=== PATIENT | female | born 1950 | race Caucasian/White ===

== ENCOUNTER → 2020-10-10 11:40 | Outpatient (CLI) | payer MEDICARE, SELFPAY ==
[2020-10-10 12:42] LABS: BUN Creatinine Ratio 32.1 (6-22); Blood Urea Nitrogen 17 mg/dL (7-17); Calcium 9.3 mg/dL (8.4-10.2); Carbon Dioxide 28 mmol/L (22-32); Chloride 106 mmol/L (98-107); Estimated Glomerular Filt Rate > 60.0 mL/min (>60); Glucose 106 mg/dL (80-110); HEMOLYSIS < 15 (0-50); Potassium 3.9 mmol/L (3.4-5.1); Sodium 138 mmol/L (137-145)
== END ==
PROVIDERS: PCP Family Medicine; Referring Provider Orthopaedic Surgery Adult Reconstructive Orthopaedic Surgery; Visit Provider Orthopaedic Surgery Adult Reconstructive Orthopaedic Surgery
DX: Z01.818 Encounter for other preprocedural examination (principal)
CPT/HCPCS: 36415; 80048; 93005

== ENCOUNTER → 2021-03-26 13:54 | Outpatient (CLI) | payer MEDICARE, SELFPAY ==
[2021-03-26 17:45] LABS: COVID19 -Nasal RAPID Negative (Negative)
== END ==
PROVIDERS: PCP Family Medicine; Referring Provider Nurse Practitioner Family; Visit Provider Nurse Practitioner Family
DX: Z01.812 Encounter for preprocedural laboratory examination (principal); Z20.822 Contact with and (suspected) exposure to COVID-19
CPT/HCPCS: 87635; C9803

== ENCOUNTER 2021-03-28 10:18 | Observation (INO) | payer MEDICARE, SELFPAY ==
[2021-03-23 13:28] VITALS: BMI 31.1
[2021-03-27] VITALS (14 sets, daily range): BP systolic 134–157; BP diastolic 62–96; PULSE 63–89; RESP 13–18; TEMP 36.2–37.3; O2SAT 95–98; BMI 31.1
--- NOTE | 2021-03-27 14:35 | PM.PREOP ---
Pre-operative Note COVID-19 COVID-19 status: Negative Result date/Date tested (Pos, Neg/Pending): 03/26/21 Interval Note History & Physical reviewed/Exam performed by Physician: Yes Changes to H&P: No H&P completed within 30 days and has changed as indicated here:: Plan for removalof hardware, I&D right ankle and 6 weeks IV abx
--- NOTE | 2021-03-27 15:08 | SUR.OPER ---
Supine on padded OR bed, head on pillow, arms secured on padded arm boards at <90 degrees abduction, legs uncrossed, safety belt at waist, tape over blanket over left lower leg.Right leg under control of surgeon, gel bump under right hip.
[2021-03-27] MEDS: CEFAZOLIN 1 GM VIAL 2 GM IV ×2 (15:24→17:21)
[2021-03-27] MEDS: fentaNYL 100 MCG/2 ML INJ IV ×2 (16:00→16:05)
[2021-03-27] MEDS: OXYCODONE IR 5 MG TABLET PO (16:16)
[2021-03-27] MEDS: ACETAMINOPHEN 325 MG TABLET 975 MG PO ×2 (16:20→20:35)
--- NOTE | 2021-03-27 16:20 | P.OP_ITS ---
Operative Date/Time/Diagnoses Date of procedure: 03/27/21 Time of procedure: 16:20 Pre-op diagnosis: infected right ankle hardware Post-op diagnosis: same Procedure & Clinicians Procedure: Removal of hardware right ankle and irrigation debridement. Same procedure as scheduled: Yes Indications: Patient status post open reduction internal fixation of right ankle fracture approximately 6 months ago. Last week she presented with a draining sinus tract. This was able to probe down to the plate which indicates infection of the hardware. Surgeon: Joshua Murray Click Yes if Unassisted: Yes Anesthesia Type: General Operative Notes Findings: Draining sinus tract probing down to the bone and plate. Mild purulence encountered during irrigation debridement. Closure Type: primary Specimen(s): other (2x swab; 1x bone culture) Estimated Blood Loss (mL): 50 Procedure in detail: Patient was met in the preoperative holding area where the site and side of surgery marked by . For was then removed been reviewed in clinic was also reviewed the preoperative holding area and signed in the preop holding area. Patient brought back in operating room she was induced under general anesthesia. A nonsterile tourniquet was then placed on the right thigh the right lower extremity then prepped and draped in normal sterile fashion. A surgical time- out was performed verifying the site and surgery surgery as well and the patient. An Esmarch was then used to exsanguinate the right lower extremity the tourniquet was inflated turned 50 mm Hg. The old surgical incision was marked out a 10. Blade was then used to open up the old incision the sinus tract was ellipsed out. Combination of sharp and blunt dissection was carried down the level the plate. At this point some gross purulence was encountered. Swabs were taken. I then removed the lag screw followed by the 7 screws that were holding the plate onto the bone and remove the plates and screws. No hardware was left behind. At this point bone biopsy was then performed and sent as well. A large curette was then used to roughly debride the wound bed and bone. Small curette was then used to debride each screw hole. The wound was then thoroughly irrigated with copious normal saline. Repeat round of debridement was then performed followed by repeat irrigation tourniquet was let down at 17 minutes of time hemostasis was achieved using electrocautery Ancef was given intravenously and the wound was closed using 2 V icryl in a layered fashion followed by 2-0 nylon in vertical mattress fashion on skin followed by Xeroform and sterile dressings. Post-operative Condition: stable Disposition: PACU Plan for aftercare: Weightbearing as tolerated right lower extremity in a cam boot, Ancef 2 g q.8 hours, PICC line ordered, aspirin 81 mg b.i.d. for 6 weeks for DVT prophylaxis.
[2021-03-27] MEDS: LACTATED RINGERS 1,000 ML 125 ML IV (17:21)
[2021-03-27] MEDS: ASPIRIN EC 81 MG TABLET PO (20:35)
[2021-03-28] VITALS: BP 136/76; PULSE 68; RESP 15; TEMP 36.4; O2SAT 95
[2021-03-28] MEDS: CEFAZOLIN 1 GM VIAL 2 GM IV ×3 (00:58→19:02)
[2021-03-28] MEDS: OXYCODONE IR 5 MG TABLET PO ×2 (01:21→20:07)
[2021-03-28] MEDS: LACTATED RINGERS 1,000 ML 125 ML IV (01:55)
[2021-03-28 04:00] VITALS: BP 121/62; PULSE 58; RESP 16; TEMP 36.5; O2SAT 98
[2021-03-28 05:37] LABS: Hematocrit 38.2 % (36-46); Hemoglobin 12.7 g/dL (12.0-16.0); Mean Corpuscular HGB Conc 33.3 % (30-36); Mean Corpuscular Hemoglobin 29.8 PG (26-34); Mean Corpuscular Volume 89.4 fL (80-100); Platelet Count 390 X10^3/uL (150-400); Red Blood Cell Count 4.27 X10^6/uL (4.0-5.2)
[2021-03-28 08:10] VITALS: BP 136/74; PULSE 62; RESP 17; TEMP 36.5; O2SAT 96
--- NOTE | 2021-03-28 08:38 | PM.PNPO.1 ---
Subjective Subjective Date Patient Seen: 03/28/21 Time Patient Seen: 08:44 Interval history: The patient is complaining of mild right ankle pain status post right ankle I&D for infected hardware yesterday. She denies fevers, chills, night sweats. No numbness or tingling. No nausea or vomiting. She has not had her PICC line placed yet. Exam Vital Signs (past 8 hours): - 03/28/21 04:00 Temperature 97.7 F Pulse Rate 58 L Respiratory Rate 16 Blood Pressure 121/62 Pulse Oximetry 98 Oxygen Delivery Method Room Air Oxygen Flow Rate 0 Narrative Exam Narrative: Pleasant 71-year-old female, resting comfortably in bed, no acute distress. Dressing is intact, clean and dry. Patient is able to dorsiflex and plantar flex on the right side. She is currently in a Cam boot. Bilateral calves are soft, nontender palpation. Gram stain +: Gram+ cocci. Aerobic and anaerobic final cultures are still pending. Objective Labs Result Diagrams: 03/28/21 05:25 Labs: Laboratory Results - last 24 hr 03/28/21 05:25 WBC 10.0 RBC 4.27 Hgb 12.7 Hct 38.2 MCV 89.4 MCH 29.8 MCHC 33.3 RDW 13.0 Plt Count 390 PFSH Medical History (Updated 03/28/21 @ 08:47 by Vannessa Lao PA-C) Surgical site infection Social History household members: none Smoking Status: Never smoker alcohol intake: never Assessment & Plan Post-op Postoperative Procedures: Procedures Operation Date: 03/27/21 14:30 Actual Procedure Side Surgeon p I&D ankle w. Right Joshua Murray MD s Removal of Hardware for deep infection involving implant Right Joshua Murray MD Postoperative status narrative: stable status post right ankle I&D for infected hardware Postoperative plan narrative: -Weightbearing as tolerated right lower extremity in a cam boot -Ancef 2 g q.8 hours. [facility] has been contacted by our office for home medication. -PICC line ordered -cultures are still pending, but Gram stain + for Gram positive cocci -aspirin 81 mg b.i.d. for 6 weeks for DVT prophylaxis -possibly DC home today after PICC line placement. Need to check with Dr. Murray about wound care and pending cultures prior to DC Quality VTE Deep Vein Thrombosis/Pulmonary Embolism Present on Admission: No
[2021-03-28] MEDS: ASPIRIN EC 81 MG TABLET PO ×2 (09:28→20:07)
[2021-03-28] MEDS: ACETAMINOPHEN 325 MG TABLET 975 MG PO ×3 (09:28→20:07)
--- NOTE | 2021-03-28 09:49 | PC.NURSE ---
Patient is wearing her protective boot to her r.ankle. She states that her pain is a 4/10. Given Tylenol for comfort and helpful. CMS wnl and ppx2. Patient is getting her picc line placed as she will go home with iv antibiotics for 6 weeks.
--- NOTE | 2021-03-28 10:34 | DI.RAD.S_ITS ---
PROCEDURE: XR CHEST FOR PICC 1V INDICATIONS: proper picc placement TECHNIQUE: One view of the chest was acquired. COMPARISON: None. FINDINGS: Surgical changes and devices: Left-sided PICC with the catheter tip at the cavoatrial junction. Lungs and pleura: Minimal streaky opacity in the left lung. No silhouetting. No pleural effusions or pneumothorax. Mediastinum: Mediastinal contours appear normal. Heart size is normal. Bones and chest wall: No suspicious bony lesions. Overlying soft tissues appear unremarkable. IMPRESSION: Left-sided PICC with the catheter tip at the cavoatrial junction. Minimal streaky opacity in the left lung. Suspect atelectasis over pneumonia. Dictated by: Juan Carlos Bledsoe M.D. on 03/28/2021 at 10:19 Approved by: Juan Carlos Bledsoe M.D. on 03/28/2021 at 10:20
--- NOTE | 2021-03-28 11:07 | PT.IIE ---
Current Diagnoses Infection following a procedure, other surgical site, initial encounter (03/28/21) Surgery Performed Operation Date: 03/27/21 14:30 Actual Procedures p I&D ankle w.(Right) - Joshua Murray MD s Removal of Hardware for deep infection involving implant(Right) - Joshua Murray MD Medical History (Last Updated 03/28/21 @ 08:47 by Vannessa Lao PA-C) Surgical site infection Physical Therapy Inpatient Evaluation/Re-Eval M1 PT/OT-IP Prior Functional Status Start: 03/28/21 12:16 Freq: NEEDED Status: Active Protocol: Document 03/28/21 11:07 AB (Rec: 03/28/21 12:44 AB [id number]) Medical Review Prior Functional Status Medical History Reviewed Yes Communication able to make needs known Mobility and Gait pt stated that she is modified independent with mobilities and ambulation using her knee scooter. stated that she has been NWB on RLE prior to I&D. Social History Household Members none Living Arrangements House Number of Floors (Floors) One Floor Number of Stairs To Enter/Railing? from the front: 4 steps+ landing+3 steps without rails from the back: needs to walk> 50 ft but onlyhas 2 steps without rails Home Environment Tub/Shower Home Equipment Four Wheel Walker,Straight Cane,Crutches Additional Social History Comment pt lives at [place] in a cabin. stated that she has 2 cabins and one of the cabins is just a bedroom but with a regular height bed but she will not go in there when it is raining due to safety. pt has a tub shower but stated that she will just do sponge bathing. Pt does not have a toilet in the house but has to go outside in an outhouse. stated that she has been using a bucket for bladder/bowel needs but if it is not raining will go use the outhouse. stated that she only has 1 mattress on the floor for her to sleep on. M2 PT-IP Current Condition Start: 03/28/21 12:16 Freq: NEEDED Status: Active Protocol: Document 03/28/21 11:07 AB (Rec: 03/28/21 12:44 AB [id number]) Physical Therapy Current Condition Current Condition Evaluation Date 03/28/21 Treatment Diagnosis s/p R ankle I&D; difficulty in walking Onset Date 03/27/21 Precautions Brace cam boot RLE Weight Bearing Status Weight Bearing Status Weight Bear as Tolerated Allowed Weight Bearing Amount (enter % RLE WBAT with cam boot or #) (%) M3 PT-IP Subjective Start: 03/28/21 12:16 Freq: NEEDED Status: Active Protocol: Document 03/28/21 11:07 AB (Rec: 03/28/21 12:44 AB [email or web address]) Subjective Physical Therapy Visit Type Type Initial Evaluation Visit Start Time 11:07 Visit Stop Time 12:10 Total Visit Minutes 63 Number of VIOLIN TUTOR Visits 0 Physical Therapy Visit Comments Patient Comments agreeable to do PT Therapy Pain Assessment Pain When Pain Assessed During Weight Bearing Pain Present Pain Present Pain Reported Location Right Ankle Intensity 5 Scale Used Numeric (0 - 10) Pain Management Techniques Distraction,Modification of Treatment,Re-positioning, Timing of Activity with Medications M4 PT-IP Mobility and Gait Start: 03/28/21 12:16 Freq: NEEDED Status: Active Protocol: Document 03/28/21 11:07 AB (Rec: 03/28/21 12:44 AB [email or web address]) PT-Bed Mobility Assessment Supine to Sit Supine to Sit Standby Assistance PT-Transfer Assessment Sit to and From Stand Sit to and from Stand Standby Assistance Equipment Transfer Assistive Device Gait Belt,4 Wheeled Walker Orthotic/Prosthetic Devices or Brace: Yes Transfers Transfer Destination Chair Transfer Technique ambulated Transfer Ability Level of Assist Standby Assistance,Use of Upper Extremities Comments Mobility Comments pt s/p LUE picc line. nurse stated that pt is not suppose to use much of her LUE due to picc line and not lifting more than 10#. nurse cleared pt for PT. pt completed supine to sit SBA . required assist to put L side shoe. ambulated using 4WW in the room ~ 40 ft SBA. stair climbing training using SPC and completed x 4 set on a step stool SBA to CGA. pt stated that she has a low bed. just one mattress on the floor and wants to know how she can get up. stated that she used to have a regular bed but got rid of it. also stated that she had a knee scooter but got rid of that as well. simulated low bed. pt sat on foot stool pt stated that she has a pole on R side. attempted to get up using armrest as pole but pt tends to rotate trunk instead of standing upright. pt used arm rest to pull on R side and squat pivot and plop on chair max A and cues. informed pt that she told PT that she has a pole so she cannot sit on it and it will not be safe for her to get up from. showed pt another way to get up without rotating and just standing straigth up RUE pushing from the stool/bed and LUE on the 4WW. pt unable to complete without assistance and needed max A and max cues. informed pt that she just needs to use the bed in the other cabin and pt stated that she will not go in there when it is raining . Pt asked PT what can she do . Informed pt that theses are environmental barriers that PT cannot do anything at this time especially with her restriction on her LUE and cam boot on RLE. pt stated that she will ask her friend if she can stay at her place for a few days. will f/u tomorrow. Gait Assessment Gait Gait Assistance Required: Standby Assistance Distance (Feet) 40 Able to Maintain Weight Bearing Status Yes During Gait Assistive Devices Assistive Device Straight Cane,4 Wheeled Walker Gait Deviations General Gait Pattern Antalgic,Decreased Stride Length,Decreased Feet Clearance Factors Limiting Gait Function Factors Limiting Gait Function Decreased Strength,Difficulty Following Directions,Limited Range of Motion,Pain,Poor Balance,Poor Safety Awareness Stair Climbing Assessment Evaluation Level of Assist On Stairs Contact Guard Assistance,1 Person Assistance Devices Stair Climbing Assistive Devices Straight Cane Technique/Endurance Stair Climbing Direction Ascend and Descend Stair Climbing Technique Step to Step Number of Steps Climbed 1 Query Text: Stair Climbing Set # Repetitions (reps) 4 PT-Balance Assessment Sitting Balance and Reactions Static Sitting Balance Ability Normal Dynamic Sitting Balance Ability Good Standing Balance and Reactions Static Standing Balance Ability Fair Dynamic Standing Balance Ability Fair Device Used 4WW M5 PT-IP Objective Assessments Start: 03/28/21 12:16 Freq: NEEDED Status: Active Protocol: Document 03/28/21 11:07 AB (Rec: 03/28/21 12:44 AB [id number]) Orientation Orientation/Cognition Level of Alertness Alert Orientation Name,Place,Situation Safety Awareness Decreased Safety Awareness Gross Range of Motion Lower Extremity ROM Impairments R ankle on cam boot NT Strength Lower Extremity Strength Assessment Left Impaired Ankle R: NT Muscle Tone Muscle Tone WNL Yes M6 PT-IP Treatment Start: 03/28/21 12:16 Freq: NEEDED Status: Active Protocol: Document 03/28/21 11:07 AB (Rec: 03/28/21 12:44 AB [email or web address]) Physical Therapy Treatment Education Education Provided Precautions,Weight Bearing Status,Safety Other Treatments Other Treatment Performed pt stated that she knows how to manage her cam boot M7 PT-IP Assessment and Plan Start: 03/28/21 12:16 Freq: NEEDED Status: Active Protocol: Document 03/28/21 11:07 AB (Rec: 03/28/21 12:44 AB [email or web address]) PT Summary Assessment and Plan Potential Rehabilitation Potential Fair Status of Condition at Evaluation Evolving Summary Impairments Pain,ROM,Strength,Balance, Coordination,Sensation,Tone, Cognition,Bed Mobility, Transfers,Gait,Activity Tolerance Assessment Summary pt requiring SBA with ambulation using 4WW, CGA with stair climbing but has difficulty getting up from a very low surface (pt has a low bed)requiring max A and max cues. pt lives at [place] and lives on a cabin and has several environmental barriers affecting mobility considering current medical condition. will continue to assess progress. Goals Bed Mobility Goal Independent Transfer Goal Independent,Cane,Four Wheeled Walker Gait Goal Independent,Cane,Four Wheel Walker Gait Distance 150 Other Goals up/down 2 steps SPC mod I Days to Meet Goals 10 Frequency of Treatment Frequency Of Treatment Once a Day Treatment Plan Physical Therapy Treatment Plan Bed Mobility Training,Transfer Training,Gait Training, Therapeutic Exercise,Balance Retraining,Post Op Education, Discharge Planning,Hot or Cold Pack,Neuromuscular Re-ed, Coordination Retraining,Manual Therapy Precautions Other Precautions RLE WBAT with cam boot Recommendations To Nursing Amount of Assist Needed 1 Person Assist Discharge Recommendations PT Discharge Recommendations Home with Assistance Transportation Needs at Discharge Private Vehicle
[2021-03-28 13:20] VITALS: BP 134/74; PULSE 70; RESP 18; TEMP 36.7; O2SAT 96
--- NOTE | 2021-03-28 14:23 | CM.DANOTE ---
Patient is a 71 yo female who was admitted on 03/27/21 for post op infection. Pt has [facility] for insurance and her PCP is Dr. Samuel Heart. EMR was reviewed. Per Ortho , pt was taken to surgery for I&D of the post ankle surgery hardware infection and removal. Pt will need 6 weeks IV-Abx and started referral to [facility]. Per PT, pt lives at home alone on [address] in two off the grid cabins with no bathroom but outhouse and sleeps in one cabin as the other has a mattress on the ground and pt has been using a bucket for toileting since her initial ankle surgery. Will work with pt again tomorrow for stairs and CG training with friend. SW received a call from Reese at [facility] stating they received referral from Ortho and aware of Ancef 2g Q8 and pt will have some copay/out pocket expense and already spoke to pt via phone with this information and will complete bedside teaching with pt either this afternoon or tomorrow prior to d/c. [facility] just requesting labs and PICC insertion note. SW faxed labs, microbiology, PICC note, and MAR to [facility] to review. Due to pt's copay/costs [facility] requesting MACIEJ RN for weekly lab draws and dressing changes. MED called [facility] as they are the only agency services [facility] and made new referral and confirmed they can accept her insurance and faxed pt referral along with completed F2F and MD orders. SW met bedside with pt and friend Rosario and explained role and pt confirms that she is now planning to d/c to her friend's house via friend's POV and she is agreeable with [facility] and cost as well as [facility] and SW provided brochures for both. Pt confirms she is active and independent at baseline and has adult Dtr, DAWN, and grandchild in [place] that she sees regularly and they plan to have pt come stay with them after pt is settled after d/c and pt already discussed with [facility] and they can follow her there if needed. Plan: SW to follow for plan of d/c to friend's house tomorrow with [facility] for IV-Abx and Jalil WING RN. SW to fax d/c summary to both at discharge. SW to follow for CG training with PT tomorrow to confirm pt can manage stairs. SOCO Lynn Discharge Planning/Care Management CM Discharge Assessment Start: 03/28/21 14:21 Freq: Status: Active Protocol: Document 03/28/21 14:21 BF (Rec: 03/28/21 14:23 BF [id number]) Discharge Planning Assessment Assigned Cpc SOCO Resendiz DPOA/Assigned Designee Name none, informally Dtr in [place] Advance Directives? No Advance Directives on File No History Provided By Patient,Friend,Medical Record Has Patient been admitted in last 30 No days? Prior Living Arrangements House Household Members none Type of transporation used prior to Drives own vehicle admit Independent with ADL's Yes Is patient alert and oriented? Yes Caregiver for Another No DME Already Rented / Owned FWW / Walker,Cane Patient/Family Preference Home with Home Health Barriers to Discharge No Discharge Plan Home with Home Health Community Services Home Health Nurse,IV Therapy Transportation Arrangement Friend bedside and plans to transport home at d/c to her house Referrals Initiated Home Health,Other Additional Comment [facility] for 6 weeks IV-Abx If patient plan is home with home health Yes : Has signed face to face form been completed? Medicare Choice List Provided Yes SNF/HH Preference [facility] and [facility] Whiteboard Updated in Patient Room with Yes name and ext. # of Cpc Review Status In Process Please Provide Date Initial DC 03/28/21 Assessment Was Performed Next Review Type Continued Stay Review Pre-Anesthesia Assessment Start: 03/23/21 13:28 Freq: Status: Active Protocol: Document 03/23/21 13:28 CAB (Rec: 03/23/21 13:35 CAB [id number]) Pre-Anesthesia Assessment PAC Comment Surgeon H&P not identified. Last medical/medication records are from 1999, unable to complete PAC assess Patient Information Reviewed Via Chart Review Comment COVID screen @ 03/26/21 Primary Care Provider Not listed Seen Specialist in Last 12 Months Yes Specialist Seen Orthopedist Prop Drawer Required No Height 157.48 cm Weight 77.111 kg Body Mass Index (BMI) 31.1
[2021-03-28 16:29] VITALS: BP 113/64; PULSE 64; RESP 20; TEMP 36.6; O2SAT 97
[2021-03-28 19:52] VITALS: BP 128/78; PULSE 65; RESP 18; TEMP 36.6
[2021-03-29 00:15] VITALS: BP 116/69; PULSE 69; RESP 18; TEMP 36.4; O2SAT 97
[2021-03-29] MEDS: CEFAZOLIN 1 GM VIAL 2 GM IV ×2 (03:39→11:04)
[2021-03-29 03:52] VITALS: BP 147/72; PULSE 61; RESP 18; TEMP 37; O2SAT 96
[2021-03-29] MEDS: polyethylene glycoL 3350 17 GM POWD.PACK PO (09:12)
[2021-03-29] MEDS: ASPIRIN EC 81 MG TABLET PO (09:12)
--- NOTE | 2021-03-29 09:23 | PM.DS.1 ---
History of Present Illness History of Present Illness Date Patient Seen: 03/29/21 Time Patient Seen: 07:35 Chief complaint: Right Ankle pain Narrative: The patient is complaining of mild right ankle pain, which is well controlled with current pain medications. Her biggest concern is the PICC lines and ambulating. She is working with physical therapy. Overall she is feeling well, and like to discharge home today. [place] Discharge Providers Provider Date of admission: 03/28/21 10:18 Discharge Date: 03/29/21 Primary care physician: Samuel Heart MD Consults: 03/27/21 16:51 Consult to Discharge Planning Routine Comment: Consult to Physical Therapy Evaluate & Treat Comment: Physician Instructions: Evaluate and Treat Consult to Respiratory Therapy Evaluate & Treat Comment: Physician Instructions: Evaluate and treat 03/28/21 11:22 Consult to Home Health Routine Comment: nursing home IV-Abx, dressing changes, weekly lab michelle Reason For Exam: Set up RN for d/c home from infected hardware Discharge provider: Vannessa Lao PA-C Summary Hospital Course Discharge Diagnosis: infected right ankle hardware Hospital Course: Procedure: Removal of hardware right ankle and irrigation debridement. Same procedure as scheduled: Yes Indications: Patient status post open reduction internal fixation of right ankle fracture approximately 6 months ago.? Last week she presented with a draining sinus tract.? This was able to probe down to the plate which indicates infection of the hardware. Surgeon: Joshua Murray Click Yes if Unassisted: Yes Anesthesia Type: General Operative Notes Findings: Draining sinus tract probing down to the bone and plate.? Mild purulence encountered during irrigation debridement. Closure Type: primary Specimen(s): other (2x swab; 1x bone culture) Estimated Blood Loss (mL): 50 Status at Discharge Cognitive/behavioral status at discharge: oriented Functional status at discharge: uses cane/walker Overall status at discharge: patient is progressing back to baseline Exam Vital Signs (past 8 hours): - 03/29/21 03:52 Temperature 98.6 F Pulse Rate 61 Respiratory Rate 18 Blood Pressure 147/72 H Pulse Oximetry 96 Oxygen Delivery Method Room Air Oxygen Flow Rate 0 Narrative Exam Narrative: 71-year-old female, resting comfortably in bed, no acute distress. Cam boot in place. Right ankle dressing is clean, dry, intact. She is able to dorsiflex and plantar flex bilateral lower extremities. Sensation is grossly intact in bilateral lower extremities to light touch. Bilateral calves are soft, nontender palpation. Objective Labs Result Diagrams: 03/28/21 05:25 PFSH Medical History Surgical site infection Social History household members: none Smoking Status: Never smoker alcohol intake: never Discharge Assessment & Plan Assessment and Plan Assessment: stable s/p Right ankle I&D for right ankle infected hardware Plan of Treatment: -Weightbearing as tolerated right lower extremity in a cam boot -Ancef 2 g q.8 hours, PICC line -[facility] -aspirin 81 mg b.i.d. for 6 weeks for DVT prophylaxis. Discharge Plan Discharge Plan Patient Disposition: Home Discharge orders & Medications Prescriptions: New acetaminophen 500 mg capsule 500 mg PO Q4H MDD Max 6 tabs per day PRN (Reason: For [id number] pain) Qty: 90 RF: 0 aspirin 81 mg Tablet,Delayed Release (Dr/Ec) 81 mg PO BID PRN (Reason: X6 weeks to prevent blood clots) Qty: 90 RF: 0 cefazolin 1 gram Recon Soln 2 g IV Q8H 42 Days RF: 0 oxycodone 5 mg Tablet 5 mg PO Q3HR PRN (Reason: Pain, Moderate (4-6)) Qty: 42 RF: 0 polyethylene glycol 3350 [Miralax] 17 gram/dose powder 17 g PO BID PRN (Reason: constipation) Qty: 119 RF: 0 Follow up/Referrals: Joshua Murrya MD [Physician] - (10-14 days for postoperative visit) Samuel Heart MD [Primary Care Provider] - Diet/Activity/Treatments Diet: Diet as Tolerated and Regular Activity: Weightbearing as tolerated right lower extremity in a cam boot Cold/Heat Therapy: Use ice as needed for pain Other treatments: -Home antibiotics x6 weeks: Ancef 2 g every 8 hours by PICC line ([facility]) -aspirin 81 mg b.i.d. for 6 weeks for DVT prophylaxis. -use Tylenol OTC as needed for pain, add Oxy as needed for moderate to severe pain -Use Miralax/OTC constipation medications if needed Skin/Wound/Dressing Care Report to your healthcare provider any signs of infection, such as:: chills, fever, night sweats, unusual drainage and unusual redness Dressing: Keep dressing dry and intact. Call the office if dressing becomes wet, soiled, saturated. Visit Report/Discharge Packet Instructions: DI for Prescription Opioid Use, DI for Incision and Drainage, [facility]: Wound Care Stand Alone Forms: Surgery Discharge Discharge Data Primary Care Provider: Samuel Heart Attending Provider: Joshua Murray VTE Deep Vein Thrombosis/Pulmonary Embolism Present on Admission: No
--- NOTE | 2021-03-29 09:40 | PT.IPTN ---
Current Diagnoses Infection following a procedure, other surgical site, initial encounter (03/28/21) Surgery Performed Operation Date: 03/27/21 14:30 Actual Procedures p I&D ankle w.(Right) - Joshua Murray MD s Removal of Hardware for deep infection involving implant(Right) - Joshua Murray MD Physical Therapy Treatment Note M2 PT-IP Current Condition Start: 03/28/21 12:16 Freq: NEEDED Status: Active Protocol: Document 03/28/21 11:07 AB (Rec: 03/28/21 12:44 AB [id number]) Physical Therapy Current Condition Current Condition Evaluation Date 03/28/21 Treatment Diagnosis s/p R ankle I&D; difficulty in walking Onset Date 03/27/21 Precautions Brace cam boot RLE Weight Bearing Status Weight Bearing Status Weight Bear as Tolerated Allowed Weight Bearing Amount (enter % RLE WBAT with cam boot or #) (%) M3 PT-IP Subjective Start: 03/28/21 12:16 Freq: NEEDED Status: Active Protocol: Document 03/29/21 09:14 SP (Rec: 03/29/21 11:59 SP [id number]) Subjective Physical Therapy Visit Type Type Progress Note Visit Start Time 09:14 Visit Stop Time 09:40 Total Visit Minutes 26 Notes Vitals taken pre mobility by nursing as arrived: seated in chair: BP 133/70 HR 77 Number of DYE MIXER Visits 1 Physical Therapy Visit Comments Patient Comments Pt agreeable to working with therapy. Patient Goals Go home with friend for couple of days (has 4 stairs R HR, can use her SPC on L as needed for contact) then return to her home. Pt stated will be getting another flat horizontal SPC for better support during ride home for BUE support when got home to manage stairs. M4 PT-IP Mobility and Gait Start: 03/28/21 12:16 Freq: NEEDED Status: Active Protocol: Document 03/29/21 09:14 SP (Rec: 03/29/21 11:59 SP [id number]) PT-Transfer Assessment Sit to and From Stand Sit to and from Stand Standby Assistance,Use of Upper Extremities Equipment Transfer Assistive Device Gait Belt,4 Wheeled Walker Orthotic/Prosthetic Devices or Brace: Yes Transfers Transfer Destination Chair Transfer Technique ambulated using 4WW Transfer Ability Level of Assist Standby Assistance,Use of Upper Extremities Comments Mobility Comments Pt had camboot donned on RLE when arrived, states is trying to just use LUE for contact as needed due to recent picc line placement. Sit>stand SBA, DYE MIXER educated safety use of brake mgt of 4WW pre sit/ stand with verbalized understanding. Pt proceeded gait further distance into hallway 250 ft total to stairs modified step over step CG- Min R>L UE WB on 4WW to stairs , w/c follow for safety but not needed, completed stairs R HR and SPC light contact with LUE (to assimulate stair mgt at friend's house) CGA provided, stable step to patterning leading ascend LLE and descend RLE. Pt walked back to room using 4WW stable/ good pacing and mgt of 4WW. Pt backed up fully, reminders for 4WW brake mgt pre sit with good follow through. Pt requested assessment of getting on/ off bench cushion placed on floor and use of stationary chair at side for self RUE support stand,> 1/2 kneel,> tall kneel<> sitting on cushion with good tall upright posture and only LUE contact for balance as needed. Pt complete reverse sit>stand SBA while maintaining good stability and light contact with LUE due to picc line to allow safety getting into/ out of mattress on floor sleeps when feels ready and strong enought to return home (her cabin). Pt returned to her chair end of tx. Had call light and all needs in reach before left. Pt stated she is getting a bedside commode and friend will help her empty it daily when needed more independent to use her outhouse again, her friend will also be able to provide repositioning 4WW on/off steps when needed to leave home and CGA. Gait Assessment Gait Gait Assistance Required: Standby Assistance Distance (Feet) 250 Able to Maintain Weight Bearing Status Yes During Gait Assistive Devices Assistive Device Gait Belt,4 Wheeled Walker Orthotic/Prosthetic Devices or Brace: Yes Gait Deviations General Gait Pattern Antalgic,Decreased Stride Length,Decreased Feet Clearance Factors Limiting Gait Function Factors Limiting Gait Function Decreased Strength,Difficulty Following Directions,Limited Range of Motion,Pain,Poor Safety Awareness Comments Gait Comments See mobility comments for details. Stair Climbing Assessment Evaluation Level of Assist On Stairs Standby Assistance Devices Stair Climbing Assistive Devices Straight Cane,Right Railing Technique/Endurance Stair Climbing Direction Ascend and Descend Stair Climbing Technique Step to Step Number of Steps Climbed 1 Stair Climbing Set # Repetitions (reps) 3 Comments Stair Climbing Comments Ascend/ descend 2 sets of 3 stairs: R HR and SPC in LUE step to patterning leading with LUE to assimulate in/out friend's house of 4 stairs CGA . Then reassess ascend/descend 3 steps SPC in RUE step to patterning CGA for trunk safety balance as needed and provided light contact support L as needed for safey and assessment of 2nd SPC use is getting when ready to return home for safety on stairs without railings with good demonstration. No LOB or deviations noted. PT-Balance Assessment Sitting Balance and Reactions Static Sitting Balance Ability Normal Dynamic Sitting Balance Ability Normal Standing Balance and Reactions Static Standing Balance Ability Good Dynamic Standing Balance Ability Fair Device Used 4WW M5 PT-IP Objective Assessments Start: 03/28/21 12:16 Freq: NEEDED Status: Active Protocol: Document 03/28/21 11:07 AB (Rec: 03/28/21 12:44 AB [id number]) Orientation Orientation/Cognition Level of Alertness Alert Orientation Name,Place,Situation Safety Awareness Decreased Safety Awareness Gross Range of Motion Lower Extremity ROM Impairments R ankle on cam boot NT Strength Lower Extremity Strength Assessment Left Impaired Ankle R: NT Muscle Tone Muscle Tone WNL Yes M6 PT-IP Treatment Start: 03/28/21 12:16 Freq: NEEDED Status: Active Protocol: Document 03/29/21 09:14 SP (Rec: 03/29/21 11:59 SP [id number]) Physical Therapy Treatment Education Education Provided Precautions,Weight Bearing Status,Safety Equipment Issued Equipment Type and Company pt stated that she knows how to manage her cam boot Other Treatments Other Treatment Performed Reviewed LE exercises can perform at home did in past pre surgery: seated: LAQ, marching supine: SLR, hip abd M7 PT-IP Assessment and Plan Start: 03/28/21 12:16 Freq: NEEDED Status: Active Protocol: Document 03/29/21 09:14 SP (Rec: 03/29/21 11:59 SP [id number]) PT Summary Assessment and Plan Potential Rehabilitation Potential Fair Status of Condition at Evaluation Evolving Summary Impairments Pain,ROM,Strength,Balance, Coordination,Sensation,Tone, Cognition,Bed Mobility, Transfers,Gait,Activity Tolerance Progress Towards Goals Progressing Toward Goals Assessment Summary Pt requiring sBA during gait usign 4WW, CGA with stair climbing of which her friend can provide, Completed on/ off floor (bench cushion on floor to assimuate mattress at home ), SBA stand<>1/2 kneel<> tall kneel<> sit using RUE and light contact LUE (safety due to picc line trying not to use at all). Pt is ok to return to her friend's home when medically cleared to improved funtional mobility before returning to her home. Pt will be getting BSC and 2nd SPC to assist her when needed for home. Goals Bed Mobility Goal Independent Transfer Goal Independent,Cane,Four Wheeled Walker Gait Goal Independent,Cane,Four Wheel Walker Gait Distance 150 Other Goals up/down 2 steps SPC mod I Days to Meet Goals 10 Frequency of Treatment Frequency Of Treatment Once a Day Treatment Plan Physical Therapy Treatment Plan Bed Mobility Training,Transfer Training,Gait Training, Therapeutic Exercise,Balance Retraining,Post Op Education, Discharge Planning,Hot or Cold Pack,Neuromuscular Re-ed, Coordination Retraining,Manual Therapy Other Recommendations and Next Treatment gait SPC, dynamicc balance. Focus Precautions Other Precautions RLE WBAT with cam boot Recommendations To Nursing Amount of Assist Needed Standby Assistance Discharge Recommendations PT Discharge Recommendations Home with Assistance Equipment Needed for Home Before BSC and 2nd SPC, friend Discharge helping to acquire for her. Transportation Needs at Discharge Private Vehicle
[2021-03-29 09:51] VITALS: BP 133/70; PULSE 77; RESP 18; TEMP 36.4; O2SAT 96
--- NOTE | 2021-03-29 13:23 | CM.DPNOTE ---
DC Note DC home w/friend, [facility] to provide 6 wks IV Ancef, Jalil WING RN to assist w/lab draw and wound dressing changes. Patient remained agreeable to plan and eager to return home. Friend to transport. faxed DC summary to [facility] W[facility] and [facility]. Dr Murray to follow abx orders. Spoke w/Mikayla, pharmacist at [facility], she confirmed all in place. [facility] RN to complete teaching at patient's bedside at 1300 JW
--- NOTE | 2021-03-29 16:36 | PC.NURSE ---
Pt and pt's ride/friend left hospital in stable condition via wheelchair with [employer] escort. Priority board in place per [facility] [place].
== END 2021-03-29 16:15 | disposition home or self-care (01) ==
LOC: OR 11:10 → AC 11:10
PROVIDERS: Admitting Provider Orthopaedic Surgery Adult Reconstructive Orthopaedic Surgery; PCP Family Medicine; Referring Provider Orthopaedic Surgery Adult Reconstructive Orthopaedic Surgery; Visit Provider Orthopaedic Surgery Adult Reconstructive Orthopaedic Surgery
PROC: (CPT 27704; principal; 2021-03-27 14:30)
PROC: (CPT 27704; 2021-03-27 14:30)
DX: T84.7XXA Infection and inflammatory reaction due to other internal orthopedic prosthetic devices, implants and grafts, initial encounter (principal); B95.61 Methicillin susceptible Staphylococcus aureus infection as the cause of diseases classified elsewhere; Z45.2 Encounter for adjustment and management of vascular access device; E66.9 Obesity, unspecified; Z68.31 Body mass index [BMI] 31.0-31.9, adult
CPT/HCPCS: 27704; 27603; 36415; 36569; 85027; 87070; 87075; 87077; 87147; 87186; 87205; 97116; 97162; 97530; G0378; J0690; J1100; J2405; J2704; J3010

== ENCOUNTER → 2025-06-01 14:00 | Outpatient (CLI) | payer MEDICARE, SELFPAY ==
[2021-03-27 16:54] VITALS: BMI 31.1
--- NOTE | 2025-06-01 14:01 | DI.RAD.S_ITS ---
PROCEDURE: XR DEXA AXIAL SKELETON INDICATIONS: Osteoporosis Screening COMPARISON: None. FINDINGS: Lumbar Spine, L1 through L3: Bone mineral density 1.197 g/cm2, T score 1.6, normal. Left Femoral Neck: Bone mineral density 0.656 g/cm2, T score -1.7, osteopenia. Left Hip: Bone mineral density 0.816 g/cm2, T score -1.0, normal. Fracture Risk Calculation (when applicable): 10-year fracture risk of a major osteoporotic fracture 12 percent and of a hip fracture 2.7 percent. (T score greater or equal to -1.0 to: NORMAL) (T score from -1.1 to -2.4: OSTEOPENIA) (T score less than or equal to -2.5: OSTEOPOROSIS) IMPRESSION: Osteopenia elevates the patient's 10 year fracture risk as described. Follow-up guidelines as follows: Osteoporosis: Consider a repeat DEXA and Vertebral Fracture Assessment (VFA) exam in 2 years or sooner if medically necessary, to reassess this patient's status. Osteopenia: Consider a repeat DEXA in 2-3 years to reassess this patient's status, or if there is a new clinical indication. Normal: Consider a repeat DEXA in 5 years or sooner, or if there is a new clinical indication. All treatment decisions require clinical judgment and consideration of individual patient factors, including patient preferences, comorbidities, previous drug use, risk factors not captured in the FRAX model (e.g., frailty, falls, vitamin D deficiency, increased bone turnover, interval significant decline in bone density ) and possible under- or over-estimation of fracture risk by FRAX. In addition, the NOF Guide recommends that FDA-approved medical therapies be considered in postmenopausal women and men age >= 50 years with a: * Hip or vertebral (clinical or morphometric) fracture * T-score of <=-2.5 at the spine or hip * Ten-year fracture probability by FRAX of >= 3% for hip fracture or >=20% for major osteoporotic fracture. Dictated by: Mireya Palacios M.D. on 06/03/2025 at 22:54 Approved by: Mireya Palacios M.D. on 06/03/2025 at 22:54
== END ==
LOC: RAD 14:00
PROVIDERS: PCP Physician Assistant; Referring Provider Physician Assistant; Visit Provider Physician Assistant
DX: M85.852 Other specified disorders of bone density and structure, left thigh (principal); Z78.0 Asymptomatic menopausal state
CPT/HCPCS: 77080